=== PATIENT | female | born 1975 | race Caucasian/White ===

== ENCOUNTER 2019-05-23 12:41 | Emergency (ER) | payer OTHER, SELFPAY ==
[2019-05-23 12:45] VITALS: BP 132/91; PULSE 102; RESP 18; TEMP 37; O2SAT 96; BMI 36.0
--- NOTE | 2019-05-23 12:49 | ED_ITS ---
Entered by Bj Galvez, acting as scribe for Damián Mcdermott MD May 23, 2019 12:41 HPI - Neuro Symptoms/Deficit General: Chief Complaint: General Medical Stated Complaint: facial numbness Time Seen by Provider: 05/23/19 12:45 History of Present Illness: HPI Narrative: 43 yo female presents with facial numbness. pt states that she has had some slurred speech. Pt states that her head hurts and she is nauseated. Pt states that she had slurred speech off and on for the past 2 days. Pt states that her headache is getting better. Pt states that her headache is getting better. Onset (ago): day(s) (2) Location: speech and left face History of same: No Severity: moderate Quality: numb Relieving factors: time Exacerbating factors: none Context: gradual onset Associated symptoms: Reports headache(s), nausea, tingling and weakness; Deny chest pain Review of Systems Const: Denies: fever, chills, body aches or change in appetite Eyes: Denies: blurry vision or eye discomfort ENMT: Denies: throat pain or dental pain Card: Denies: chest pain Resp: Denies: shortness of breath GI: Reports: nausea : Denies: painful urination Musc: Denies: neck pain or back pain Skin/Breast: Denies: rash Neuro: Reports: headache Psych: Denies: depression Meir/Lymph: Denies: easy bruising All/Imm: Denies: hives PFSH ED PFSH: Social History Smoking and tobacco status: never smoked Physical Exam Const: COMMON NORMALS: no apparent distress, oriented x3 and healthy appearing HENMT: COMMON NORMALS: normocephalic and head/scalp atraumatic HEAD & SCALP: normocephalic and atraumatic Eye: COMMON NORMALS: PERRL and EOMs intact bilaterally PUPIL: Yes PERRL Neck/C-Spine: COMMON NORMALS: full ROM and supple Chest: COMMONS NORMALS: inspection of chest normal and palpation of chest normal Resp: COMMON NORMALS: normal respiratory effort, no retractions, no use of accessory muscles and clear to auscultation bilaterally AUSCULTATION: clear to auscultation bilaterally Cardio: COMMON NORMALS: regular rate, regular rhythm and no murmurs RATE: regular rate RHYTHM: regular rhythm GI: COMMON NORMALS: normal to inspection, nondistended, normoactive bowel sounds, soft to palpation, non-tender and no masses PALPATION: Yes soft Extremity: COMMON NORMALS: normal to inspection and full ROM Neuro: COMMON NORMALS: oriented x3, moves all extremities and no focal motor deficits Psych: COMMON NORMALS: mental status grossly normal, thought process normal and cooperative THOUGHT PROCESS: normal thought process Skin: COMMON NORMALS: no rashes or lesions noted and no wounds GENERAL SKIN EXAM: no rashes or lesions noted Course Vital Signs: Vital signs: Vital Signs Temperature 98.6 F 05/23/19 12:45 Pulse Rate 102 H 05/23/19 12:45 Respiratory Rate 18 05/23/19 12:45 Blood Pressure 132/91 05/23/19 12:45 Pulse Oximetry 96 05/23/19 12:45 MDM - Neuro Symptoms/Deficit MDM Narrative: Medical decision making narrative: Patient presents here with headaches along with paresthesias with her headaches. Patient is likely having migraines with aura. Paresthesias are bilateral has no signs of a stroke. Patient's lab work and CT here are normal. Patient symptom-free here. She is stable for discharge and I will prescribe her Fioricet and she is to follow-up with her primary care doctor. Lab Data: Labs: Lab Results 05/23/19 05/23/19 05/23/19 Range/Units 13:03 13:03 13:03 WBC 5.8 (4.0-10.0) 10^3/ uL RBC 4.07 L (4.1-5.3) 10^6/u L Hgb 11.8 (11.5-15.3) g/dL Hct 35.6 L (37.0-47.0) % MCV 87.5 (81-99) fL MCH 29.0 (28.0-34.0) pg MCHC 33.1 (30.0-36.0) g/dL RDW 11.6 L (12.1-15.1) % Plt Count 307 (130-400) 10^3/c mm MPV 9.9 (7.4-10.4) fL Neut % (Auto) 63.0 % Lymph % (Auto) 26.3 % Valley % (Auto) 7.0 % Eos % (Auto) 3.1 % Baso % (Auto) 0.3 % Neut # (Auto) 3.7 (1.8-7.7) 10^3/u L Lymph # (Auto) 1.5 (0.8-4.8) 10^3/u L Valley # (Auto) 0.4 (0.2-0.9) 10^3/u L Eos # (Auto) 0.2 (0.0-0.8) 10^3/u L Baso # (Auto) 0.0 (0.0-0.1) 10^3/u L Nucleated RBC % (a uto) 0 % Nucleated RBCs # 0.0 /100WBC Sodium 135 L (136-145) mmol/L Potassium 3.2 L (3.5-5.1) mmol/L Chloride 94 L (98-107) mmol/L Carbon Dioxide 28 (22-29) mmol/L Anion Gap 16.2 (5-19) BUN 22 H (6-20) mg/dL Creatinine 0.9 (0.5-0.9) mg/dL GFR Calculation 68.0 L (90-130) mL/min Glucose 119 H (65-115) mg/dL Calcium 10.0 (8.5-10.5) mg/dL Total Bilirubin 0.2 (0.15-1.2) mg/dL AST 12 (0-32) U/L ALT 14 (0-33) U/L Alkaline Phosphata se 131 H (35-105) IU/L Total Protein 7.4 (6.6-8.7) g/dL Albumin 4.3 (3.5-5.2) g/dL Globulin 3.1 (1.3-4.6) g/dL TSH 0.51 (0.27-4.20) uIU/ mL Imaging Data^: CT Head: My impression: Ordering Provider/Ordering MD: Damián Mcdermott MD Date of Service: 05/23/19 Procedure(s): CT head wo con* [id number] Accession Number(s): [id number] Report Number: [id number] PROCEDURE INFORMATION: Exam: CT Head Without Contrast Exam date and time: 05/23/2019 12:54 PM Age: 43 years old Clinical indication: Numbness / parasthesia; Bilateral; Patient HX: C/O intermittent facial numbness/tingling x 1 week; Additional info: Paresthesia TECHNIQUE: Imaging protocol: Computed tomography of the head without contrast. Total DLP: 777.42 mGy-cm Radiation optimization: All CT scans at this facility use at least one of these dose optimization techniques: automated exposure control; mA and/or kV adjustment per patient size (includes targeted exams where dose is matched to clinical indication); or iterative reconstruction. COMPARISON: No relevant prior studies available. FINDINGS: Brain: There is a left posterior fossa arachnoid cyst. Ventricles: Normal. No ventriculomegaly. Bones/joints: Unremarkable. No acute fracture. Sinuses: There are bilateral maxillary sinus air-fluid levels. Mastoid air cells: Visualized mastoid air cells are well aerated. Soft tissues: Unremarkable. CT/CT head wo con* [id number] IMPRESSION: 1. No acute intracranial findings identified. Please refer to incidental findings in body of report. 2. There are bilateral maxillary sinus air-fluid levels. 3. There is a left posterior fossa arachnoid cyst. EKG Data^: EKG 1: Attestation: I personally reviewed and interpreted this EKG as follows: EKG interpretation date: 05/23/19 EKG interpretation time: 13:17 Interpretation: nsr hr [address] or t wave abnormalities qrs 94 qtc 414 Discharge Plan Discharge Patient Disposition: Home, Self-Care Clinical Impression: Paresthesia Headache Qualifiers: Headache type: unspecified Headache chronicity pattern: episodic headache Intractability: not intractable Qualified Code(s): R51 - Headache Condition: Stable Prescriptions: New Fioricet 50-300-40 mg capsule 1 cap PO Q8H PRN (Reason: pain) Qty: 60 RF: 0 No Action cyclobenzaprine 10 mg tablet 10 mg PO QID PRN (Reason: Muscle Spasm) RF: 0 doxycycline hyclate 100 mg capsule 100 mg PO BID RF: 0 pantoprazole 20 mg tablet,delayed release (DR/EC) 20 mg PO DAILY RF: 0 alprazolam 0.5 mg tablet 0.5 mg PO BID PRN (Reason: Anxiety) RF: 0 hydrocodone-acetaminophen 7.5-325 mg tablet 1 tab PO Q6H PRN (Reason: Pain) RF: 0 levothyroxine 175 mcg Tablet 175 mcg PO DAILY RF: 0 gabapentin 600 mg Tablet 600 mg PO BID RF: 0 meloxicam 15 mg Tablet 15 mg PO DAILY RF: 0 potassium chloride 10 mEq Tablet Extended Release 10 meq PO DAILY RF: 0 methocarbamol 750 mg Tablet 750 mg PO TID RF: 0 fluoxetine 10 mg Capsule 10 mg PO DAILY RF: 0 lisinopril-hydrochlorothiazide 20-25 mg Tablet 1 tab PO DAILY RF: 0 Discharge Orders: Discharge Order (Routine); Ordered 05/23/19 Ordered By: Damián Mcdermott Discharge Diet: Advance as tolerated Discharge Activity: Resume usual activity Patient Instructions: Acute Headache (ED), Paresthesia (ED) Discharge Date/Time: 05/23/19 14:33 Coding Level of Care Code ED [employer] Attendant for Chg Fwd Exam Comprehensive The documentation recorded by the Lenny antunez Kialy, accurately reflects the service I personally performed and the decisions made by Baldemar parish Korby, MD May 23, 2019 12:41
--- NOTE | 2019-05-23 12:52 | CTR_ITS ---
PROCEDURE INFORMATION: Exam: CT Head Without Contrast Exam date and time: 05/23/2019 12:54 PM Age: 43 years old Clinical indication: Numbness / parasthesia; Bilateral; Patient HX: C/O intermittent facial numbness/tingling x 1 week; Additional info: Paresthesia TECHNIQUE: Imaging protocol: Computed tomography of the head without contrast. Total DLP: 777.42 mGy-cm Radiation optimization: All CT scans at this facility use at least one of these dose optimization techniques: automated exposure control; mA and/or kV adjustment per patient size (includes targeted exams where dose is matched to clinical indication); or iterative reconstruction. COMPARISON: No relevant prior studies available. FINDINGS: Brain: There is a left posterior fossa arachnoid cyst. Ventricles: Normal. No ventriculomegaly. Bones/joints: Unremarkable. No acute fracture. Sinuses: There are bilateral maxillary sinus air-fluid levels. Mastoid air cells: Visualized mastoid air cells are well aerated. Soft tissues: Unremarkable. CT/CT head wo con* [id number] IMPRESSION: 1. No acute intracranial findings identified. Please refer to incidental findings in body of report. 2. There are bilateral maxillary sinus air-fluid levels. 3. There is a left posterior fossa arachnoid cyst. Radiation Dose CTDIVOL = (mGy): DLP = 777.42 (mGy-cm)
--- NOTE | 2019-05-23 12:53 | ECG_ITS ---
Measurements Intervals [place] Rate: 86 P: 22 CA: 157 QRS: 31 QRSD: 94 T: 57 QT: 370 QTc: 445 SINUS RHYTHM No previous ECG available for comparison Electronically Signed On 05-23-2019 20:01:17 DREDGE LEVER OPERATOR by Carmen Cao M.D. [email or web address]
[2019-05-23 13:09] LABS: Basophils % 0.3 %; Eosinophils # 0.2 10^3/uL (0.0-0.8); Eosinophils % 3.1 %; Hematocrit 35.6 % (37.0-47.0); Hemoglobin 11.8 g/dL (11.5-15.3); Lymphocytes # 1.5 10^3/uL (0.8-4.8); Lymphocytes % 26.3 %; Mean Corpuscular HGB Conc 33.1 g/dL (30.0-36.0); Mean Corpuscular Volume 87.5 fL (81-99); Mean Platelet Volume 9.9 fL (7.4-10.4); Monocytes # 0.4 10^3/uL (0.2-0.9); Neutrophils # 3.7 10^3/uL (1.8-7.7); Nucleated Red Blood Cells % 0 %; Platelet Count 307 10^3/cmm (130-400); Red Blood Count 4.07 10^6/uL (4.1-5.3); Red Cell Distribution Width 11.6 % (12.1-15.1); White Blood Count 5.8 10^3/uL (4.0-10.0)
[2019-05-23 13:23] LABS: Alanine Aminotransferase 14 U/L (0-33); Albumin Level 4.3 g/dL (3.5-5.2); Alkaline Phosphatase 131 IU/L (35-105); Anion Gap 16.2 (5-19); Aspartate Amino Transferase 12 U/L (0-32); Blood Urea Nitrogen 22 mg/dL (6-20); Carbon Dioxide 28 mmol/L (22-29); Chloride 94 mmol/L (98-107); Globulin 3.1 g/dL (1.3-4.6); Glucose 119 mg/dL (65-115); Potassium 3.2 mmol/L (3.5-5.1); Sodium 135 mmol/L (136-145); Total Bilirubin 0.2 mg/dL (0.15-1.2); Total Protein 7.4 g/dL (6.6-8.7)
[2019-05-23 14:03] LABS: Thyroid Stimulating Hormone 0.51 uIU/mL (0.27-4.20)
--- NOTE | 2019-05-23 14:33 | PC.NURSE ---
PHYSICAL ASSESSMENT Chief Complaint: Facial numbness GENERAL / NEURO / PSYCH: Alert. Oriented X 4. DANIELLE COMA SCORE: 15- eyes open spontaneously (4); best verbal response- oriented x 4 (5); best motor response- obeys commands (6). HEENT: No facial asymmetry noted. Mucous membranes are pink. RESPIRATORY Chest nontender. Breath sounds within normal limits. CVS: Capillary refill less than 2 seconds. Pulses within normal limits. GI / : Abdomen soft and nontender and normal bowel sounds. SKIN: Skin intact. Skin is warm and dry. Normal skin turgor.
== END 2019-05-23 14:33 | disposition home or self-care (01) ==
PROVIDERS: Emergency Provider Emergency Medicine
DX: R51 Headache (principal); R20.2 Paresthesia of skin
CPT/HCPCS: 36415; 70450; 80053; 84443; 85025; 93005; 99281; 99283

== ENCOUNTER 2019-06-03 06:53 | Outpatient (CLI) | payer OTHER, SELFPAY ==
--- NOTE | 2019-06-03 07:09 | MR_ITS ---
WS: [id number] MRI HEAD WITHOUT CONTRAST TECHNIQUE: Sagittal T1, T2 axial, T2 axial FLAIR, axial and coronal T1 images, axial susceptibility w eighted imaging, axial diffusion weighted images, and coronal T2 images were obtained. CLINICAL INFORMATION: MIGRAINES;SPEECH DISTURBANCES COMPARISON: CT May 23, 2019 FINDINGS: No evidence of restricted diffusion to suggest acute ischemia. Ventricular system and basal cisterns are patent. No suspicious intracranial signal abnormalities. Normal browne-white differentiation. Retrocerebellar arachnoid cyst measuring 2.9 x 7.6 x 5.3 cm AP by transverse by craniocaudal. This is likely incidental. Normal fourth ventricle. Normal vascular flow voids at the skull base. Additional tiny incidental arachnoid cyst along the left anterior temporal lobe measuring 1.8 x 0.9 cm. Mild mucosal thickening mastoid air cells. Mild mucosal thickening in the paranasal sinuses. No hemos iderin on susceptibly weighted images. Temporal lobes and hippocampal formations are normal in appear ance. Normal optic chiasm and pituitary infundibulum. MR/MR head wo con* [id number] IMPRESSION: 1. No evidence of restricted diffusion to suggest acute ischemia. 2. Retrocerebellar arachnoid cyst typically incidental. Normal fourth ventricl e. 3. No suspicious intracranial signal abnormalities. 4. No hemosiderin on susceptibly weighted images. 5. Mild mucosal thickening mastoid air cells. 6. Additional tiny incidental arachnoid cyst overlying the left anterior tempo ral lobe measuring 1.8 x 0.9 cm
== END 2019-06-03 06:54 | disposition home or self-care (01) ==
LOC: RADSHAW 06:57
PROVIDERS: PCP Nurse Practitioner Family; Visit Provider Nurse Practitioner Family
DX: G43.909 Migraine, unspecified, not intractable, without status migrainosus (principal)
CPT/HCPCS: 70551

== ENCOUNTER → 2019-06-14 13:39 | Outpatient (BNVA) | payer OTHER, SELFPAY | PROVIDERS: PCP Nurse Practitioner Family; Referring Provider Nurse Practitioner Family; Visit Provider Specialist | DX: G50.8 Other disorders of trigeminal nerve (principal); M54.5 Low back pain; G93.0 Cerebral cysts; F17.210 Nicotine dependence, cigarettes, uncomplicated | CPT/HCPCS: 99204 ==

== ENCOUNTER 2019-07-13 08:24 | Outpatient (CLI) | payer OTHER, SELFPAY ==
--- NOTE | 2019-07-13 08:45 | MR_ITS ---
WS: [id number] MRA CAROTID WITHOUT AND WITH GADOLINIUM ENHANCEMENT TECHNIQUE: Axial 2-D TOF and gadolinium bolus images obtained with axial images and axial, sagittal, and coronal 2-D reformatted images. CLINICAL INFORMATION: vertigo COMPARISON: None. FINDINGS: RIGHT: Right common carotid artery is patent. No significant right ICA stenosis. ICA is patent to the skull base. LEFT: Left common carotid artery is patent. No significant left ICA stenosis. Left ICA is patent to t he skull base. Codominant and patent vertebral arteries bilaterally. Proximal subclavian arteries are patent. Thorac ic aorta and aortic arch appear normal. MR/MR angio neck w con* [id number] IMPRESSION: 1. No significant ICA stenosis bilaterally. 2. Both ICAs are patent to the skull base. 3. Codominant and patent vertebral arteries bilaterally. 4. Normal visualized aortic arch.
--- NOTE | 2019-07-13 08:45 | MR_ITS ---
WS: [id number] MRA HEAD TECHNIQUE: Axial 3-D TOF images obtained with axial images and axial, sagittal, and coronal 2-D refor matted images. CLINICAL INFORMATION: vertigo COMPARISON: None. FINDINGS: Distal vertebral arteries are patent. Basilar artery is patent. Normal vascularity to the WET PROCESS OPERATOR territo merry bilaterally. Both ICAs are patent at the skull base. Patent anterior communicating artery. Normal vascularity to t he AMY and MCA territories bilaterally. No evidence of high-grade proximal stenosis or aneurysm. MR/MR angio head wo con [id number] IMPRESSION: Normal intracranial MRA.
--- NOTE | 2019-07-13 08:45 | MR_ITS ---
WS: [id number] MRI CERVICAL SPINE NONCONTRAST TECHNIQUE: Sagittal T1, T2 and STIR imaging. Axial T2, gradient, and fiesta imaging. CLINICAL INFORMATION: numbness and tingling COMPARISON: None. FINDINGS: Straightening of the normal cervical lordosis. Mild disc osteophyte complexes more prominent at C3-C4 , C5-C6 and C6-C7. Cord signal is normal. C2-C3: Normal. C3-C4: Mild disc osteophyte ridging. Mild facet arthropathy. Mild right and no significant left ronaldo inal narrowing. Spinal canal is patent. C4-C5: Mild disc osteophyte ridging. Mild right and no significant left foraminal narrowing. Mild fac et arthropathy. Spinal canal is patent. C5-C6: Mild disc osteophyte ridging. Mild bilateral bony foraminal narrowing. Mild facet arthropathy. C6-C7: Disc osteophyte complex with a tiny central protrusion. Spinal canal is patent. Foramen are pa tent. C7-T1: No significant disc bulging. Spinal canal and foramen are patent Posterior fossa arachnoid cyst partially visualized unchanged since the MRI June 03, 2019 MR/MR cervical spin wo con* [id number] IMPRESSION: 1. Straightening of the normal cervical lordosis. 2. Mild disc osteophyte complexes more prominent at C3-C4, C5-C6 and C6-C7 wit h no significant central canal stenosis. 3. Mild bony foraminal narrowing more prominent at right C3-C4, right C4-5, an d left C5-C6. 4. Mild facet arthropathy in the mid cervical spine worse at C4-5. 5. Retrocerebellar arachnoid cyst
== END 2019-07-13 08:25 | disposition home or self-care (01) ==
LOC: RADSHAW 08:26
PROVIDERS: PCP Nurse Practitioner Family; Visit Provider Specialist
DX: R20.2 Paresthesia of skin (principal); R42 Dizziness and giddiness; M25.78 Osteophyte, vertebrae; M48.02 Spinal stenosis, cervical region; M47.812 Spondylosis without myelopathy or radiculopathy, cervical region; G93.0 Cerebral cysts
CPT/HCPCS: 70544; 70548; 72141

== ENCOUNTER 2019-09-06 09:09 | Outpatient (CLI) | payer OTHER, SELFPAY ==
--- NOTE | 2019-09-06 09:12 | XR_ITS ---
WS: [id number] CERVICAL SPINE FLEXION EXTENSION TECHNIQUE: 3 views of the cervical spine: lateral neutral, flexion and extension views. CLINICAL INFORMATION: Neck pain COMPARISON: None. FINDINGS: Normal alignment on the neutral view. Normal alignment on the flexion views. Normal alignment in extension. Posterior elements are normal. No other significant findings. XR/XR cervical spine fl/ex [id number] IMPRESSION: No instability on flexion-extension
--- NOTE | 2019-09-06 09:12 | XR_ITS ---
WS: [id number] LUMBAR SPINE FLEXION AND EXTENSION TECHNIQUE: 3 views of the lumbar spine: Lateral neutral, flexion, and extension views. CLINICAL INFORMATION: Low back pain COMPARISON: None. FINDINGS: 3.8 mm anterolisthesis L4 on L5. This increases on flexion to 5.4 mm and decreases on extension to 2. 6 mm. XR/XR lumbar spine f/e only [id number] IMPRESSION: Mild instability L4-5 described above.
== END 2019-09-06 09:10 | disposition home or self-care (01) ==
LOC: WPI 09:10
PROVIDERS: PCP Nurse Practitioner Family; Visit Provider Licensed Practical Nurse
DX: M54.5 Low back pain (principal); M54.2 Cervicalgia; M53.2X6 Spinal instabilities, lumbar region
CPT/HCPCS: 72040; 72120

== ENCOUNTER → 2019-10-27 09:14 | Outpatient (BNVA) | payer OTHER, SELFPAY | PROVIDERS: PCP Nurse Practitioner Family; Referring Provider Licensed Practical Nurse; Visit Provider Anesthesiology Pain Medicine | DX: M47.812 Spondylosis without myelopathy or radiculopathy, cervical region (principal); M48.02 Spinal stenosis, cervical region; M54.5 Low back pain; M54.9 Dorsalgia, unspecified; F17.220 Nicotine dependence, chewing tobacco, uncomplicated; Z79.891 Long term (current) use of opiate analgesic | CPT/HCPCS: 99205 ==

== ENCOUNTER → 2021-07-11 11:00 | Outpatient (BNVA) | payer OTHER, SELFPAY | PROVIDERS: PCP Nurse Practitioner Family; Visit Provider Internal Medicine | DX: R41.89 Other symptoms and signs involving cognitive functions and awareness (principal); M54.50 Low back pain, unspecified; R76.8 Other specified abnormal immunological findings in serum; M54.9 Dorsalgia, unspecified; M25.50 Pain in unspecified joint | CPT/HCPCS: 36415; 72100; 72202; 73120; 73620; 80053; 85025; 85651; 86140; 86160; 86162; 86200; 86235; 86255; 86376; 86480; 86704; 86803; 87340 ==

== ENCOUNTER 2022-01-02 08:50 | Outpatient (CLI) | payer OTHER, SELFPAY ==
[2022-01-02 09:52] LABS: Basophils % 0.3 %; Eosinophils # 0.1 10^3/uL (0.0-0.8); Eosinophils % 2.3 %; Hematocrit 36.4 % (37.0-47.0); Lymphocytes # 1.9 10^3/uL (0.8-4.8); Lymphocytes % 32.4 %; Mean Corpuscular Hemoglobin 29.1 pg (28.0-34.0); Mean Corpuscular Volume 88.3 fl (81-99); Mean Platelet Volume 10.3 fL (7.4-10.4); Monocytes # 0.5 10^3/uL (0.2-0.9); Monocytes % 8.4 %; Neutrophils # 3.23 10^3/uL (1.8-7.7); Neutrophils % 56.3 %; Nucleated Red Blood Cells % 0 %; Platelet Count 412 10^3/cmm (130-400); Red Blood Count 4.12 10^6/uL (4.1-5.3); White Blood Count 5.7 10^3/uL (4.0-10.0)
[2022-01-02 10:02] LABS: Erythrocyte Sedimentation Rate 6 mm/hr (0-15)
[2022-01-02 10:15] LABS: Alanine Aminotransferase 11 U/L (0-33); Albumin Level 4.4 g/dL (3.5-5.2); Alkaline Phosphatase 100 U/L (35-105); Anion Gap 17.4 (5-19); Aspartate Amino Transferase 13 U/L (0-32); Blood Urea Nitrogen 17 mg/dL (6-20); C Reactive Protein 3.3 mg/L (0.0-4.9); Carbon Dioxide 28 mmol/L (22-29); Chloride 97 mmol/L (98-107); Globulin 3.6 g/dL (1.3-4.6); Glomerular Filtration Rate 67.1 mL/min (90-130); Glucose 102 mg/dL (65-115); Osmolality Calculated 288 mOsm/kg (285-295); Potassium 4.4 mmol/L (3.5-5.1); Sodium 138 mmol/L (136-145); Total Bilirubin 0.2 mg/dL (0.15-1.2)
== END 2022-01-02 08:51 | disposition home or self-care (01) ==
PROVIDERS: Visit Provider Internal Medicine
DX: M54.50 Low back pain, unspecified (principal); R76.8 Other specified abnormal immunological findings in serum
CPT/HCPCS: 36415; 80053; 85025; 85651; 86140

== ENCOUNTER 2022-08-26 10:11 | Emergency (ER) | payer OTHER, SELFPAY ==
[2022-08-26 10:40] VITALS: BP 133/93; PULSE 98; RESP 19; TEMP 36.8; O2SAT 97
--- NOTE | 2022-08-26 11:05 | ED_ITS ---
HPI - Back Pain/Injury General: Chief Complaint: Back Pain/Injury Stated Complaint: low back pain Time Seen by Provider: 08/26/22 11:01 Source: patient Mode of arrival: ambulatory Limitations: no limitations History of Present Illness: Patient is a 46-year-old female who presents to the ED today with a complaint of lower back pain. Patient states she has a history of osteoarthritis, rheumatoid arthritis, fibromyalgia, sciatica, and bulging lumbar discs. She states pain has been present over the past 2 days or so. She states pain is radiating down into both bilateral lower extremities. She feels like something is stuck near her lumbar/sacral area. She feels like she is only able to shuffle her feet secondary to pain. MD elicited complaint: back pain Pertinent past history: prior back pain Onset (ago): day(s) Timing: constant Severity: severe Pain scale (0-10): 9 Similar Symptoms Previously: Yes Location: lumbar spine Radiation: left leg below the knee and right leg below the knee Exacerbating factors: walking and lifting Relieving factors: none Associated symptoms: Reports no associated symptoms and difficulty walking (secondary to back pain); Deny abdominal pain, chills, dysuria, fever(s) or hematuria Work related injury: No Review of Systems Const: Denies: fever(s), chills or body aches Card: Denies: chest pain Resp: Denies: dyspnea GI: Denies: abdominal pain : Denies: flank pain, dysuria or hematuria Musc: Reports: back pain Neuro: Reports: difficulty walking (secondary to back pain); Denies: headache(s), numbness in extremities, weakness in extremities, sensory changes or lack of coordination [facility] ED PFSH: Medical History Cervical disc disease Low back pain Low back pain of over 3 months duration Spondylolisthesis of lumbar region Surgical History History of delivery History of cholecystectomy History of tubal ligation Family History Grandmother Cancer Grandmother Diabetes Family/Other Hypertension Thyroid disease Grandmother Thyroid disease Social History Smoking and tobacco status: never smoked Alcohol intake: current Alcohol intake frequency: few times a month Substance/Drug Use: never Household members: none Marital status: Current occupation: [employer] in [place] Physical Exam Const: COMMON NORMALS: no acute distress, patient oriented x3, no limitations, alert and well nourished GENERAL APPEARANCE: cooperative NUTRITIONAL APPEARANCE: obese morbidly obese ORIENTATION/CONSCIOUSNESS: Yes awake, Yes oriented to person, Yes oriented to place and Yes oriented to time Resp: COMMON NORMALS: normal respiratory effort and clear to auscultation bilaterally AUSCULTATION: clear to auscultation bilaterally Cardio: COMMON NORMALS: regular rate and regular rhythm RATE: regular rate RHYTHM: regular rhythm : COMMON NORMALS: Yes no CVA tenderness BLADDER/KIDNEY EXAM: Yes no CVA tenderness Back/Pelvis: COMMON NORMALS: no CVA tenderness THORACIC SPINE/UPPER BACK: Yes normal to inspection, No thoracic spinal tenderness, No paraspinal muscle tenderness and No paraspinal muscle spasm LUMBAR SPINE/LOWER BACK: Yes normal to inspection, Yes lumbar spinal tenderness, Yes paraspinal muscle tenderness and No paraspinal muscle spasm PELVIS: Yes buttocks normal and Yes sciatic notch tenderness bilateral SACROILIAC JOINTS: Yes SI joint(s) abnormal SI joint details: tender to palpation SACRUM: no tenderness COCCYX: no tenderness Extremity: COMMON NORMALS: normal to inspection GENERAL: Yes normal exam except as noted Neuro: CHASE COMA SCALE: document [facility] findings [place] coma scale eye opening: Spontaneous [place] coma scale verbal response: Orientated [place] coma scale motor response: Obey commands [place] coma scale total score: 15 COMMON NORMALS: patient oriented x3, moves all extremities, no focal motor deficits and no sensory deficits noted SENSORIUM/ORIENTATION: Yes alert, Yes oriented to person, Yes oriented to place and Yes oriented to time GAIT: Yes Normal gait present (after meds patient was ambulated and did well ) MOTOR EXAM: 5/5 motor strength present throughout Skin: COMMON NORMALS: no rashes or lesions noted GENERAL SKIN EXAM: no rashes or lesions noted Course Vital Signs: Vital signs: Vital Signs Temperature 98.2 F 08/26/22 10:40 Pulse Rate 98 08/26/22 10:40 Respiratory Rate 19 H 08/26/22 10:40 Blood Pressure 133/93 08/26/22 10:40 Pulse Oximetry 97 08/26/22 10:40 Oxygen Delivery Me thod Room Air 08/26/22 10:40 MDM - Back Pain/Injury Medical Decision Making Patient feels better after IM medications here. She ambulated well without assistance or difficulty. Patient feels comfortable going home. She takes Mobic and Robaxin daily so we will add something additional for pain and place her on steroids. Recommend she follow-up with her primary care provider. Return ED precautions given. Labs Radiology Impressions Lumbar Spine X-Ray 08/26/22 11:19 IMPRESSION: No acute findings. Discharge Plan Discharge Patient Disposition: Home Clinical Impression: Acute exacerbation of chronic low back pain Condition: Stable Prescriptions: New hydrocodone-acetaminophen 5-325 mg tablet 1 tab PO Q6H PRN (Reason: pain) Qty: 14 0RF Medrol (Apolinar) 4 mg tablets,dose pack See Rx Instructions .ROUTE .COMPLEX Qty: 21 0RF Rx Instructions: orally per package directions Continued meloxicam 15 mg tablet 15 mg PO DAILY Qty: 30 0RF methocarbamol 750 mg tablet 750 mg PO TID PRN Discontinued tramadol 50 mg tablet 100 mg PO BID PRN prednisone 5 mg tablet See Rx Instructions PO DAILY Qty: 60 0RF Rx Instructions: 20mg po qday x 5 days, then 15mg po qday x 5 days, 10mg po qday x 5days, 5mg po qday PO daily; prednisone 5 mg tablet See Rx Instructions PO DAILY Qty: 60 0RF Rx Instructions: 1-2 tablets daily PO daily; No Action levothyroxine 150 mcg capsule 150 mcg PO DAILY venlafaxine [Effexor XR] 150 mg capsule,extended release 24hr 150 mg PO BID alprazolam 1 mg tablet 1 mg PO BID garlic PO turmeric PO levocetirizine [Xyzal] 5 mg tablet 5 mg PO DAILY diclofenac sodium [Voltaren Arthritis Pain] 1 % gel 4 g topical QID Qty: 100 0RF Rx Instructions: apply to single knee, ankle, foot; for foot includes sole/toes/top of foot hydroxychloroquine 200 mg tablet 200 mg PO BID Qty: 60 0RF pantoprazole 20 mg tablet,delayed release (DR/EC) 20 mg PO DAILY gabapentin 600 mg Tablet 600 mg PO BID potassium chloride 10 mEq Tablet Extended Release 10 meq PO DAILY lisinopril-hydrochlorothiazide 20-25 mg Tablet 1 tab PO DAILY Discharge Orders: Discharge ED (Routine); Ordered 08/26/22 Ordered By: Hillary Maldonado Referrals: Caio Melgar [Primary Care Provider] - Patient Instructions: Opioid Safety, Pain Management Coding Level of Care Code ED Carpenter Labor Supervisor for Geraldo Lane
--- NOTE | 2022-08-26 11:19 | XRR_ITS ---
PROCEDURE INFORMATION: Exam: XR Lumbosacral Spine Exam date and time: 08/26/2022 11:43 AM Age: 46 years old Clinical indication: Low back pain TECHNIQUE: Imaging protocol: Radiologic exam of the lumbosacral spine. Views: 2 or 3 views. COMPARISON: CR XR lumbar spine 2-3V* [id number] 07/11/2021 11:23 AM FINDINGS: Bones/joints: Normal. No acute fracture. Normal alignment. Soft tissues: Unremarkable. There has been no interval change comparing to prior examination XR/XR lumbar spine 2-3V* [id number] IMPRESSION: No acute findings.
[2022-08-26] MEDS: ketorolac 60 mg/2 mL INJ 30 MG IM (11:34)
[2022-08-26] MEDS: dexamethasone 10 mg/mL INJ 8 MG IM (11:34)
[2022-08-26] MEDS: orphenadrine 30 mg/mL Inj 2 mL 60 MG IM (11:35)
[2022-08-26] MEDS: morphine 4 mg/mL SDV 1 mL IM (11:35)
== END 2022-08-26 12:40 | disposition home or self-care (01) ==
PROVIDERS: Emergency Provider Physician Assistant; PCP Family Medicine
DX: M54.50 Low back pain, unspecified (principal); G89.29 Other chronic pain
CPT/HCPCS: 72100; 96372; 99284; J1100; J1885; J2270; J2360

== ENCOUNTER → 2022-11-19 16:00 | Outpatient (BNVA) | payer OTHER, SELFPAY | PROVIDERS: PCP Family Medicine; Visit Provider Obstetrics & Gynecology | DX: Z12.4 Encounter for screening for malignant neoplasm of cervix (principal) | CPT/HCPCS: 87624 ==

== ENCOUNTER → 2022-12-11 15:36 | Outpatient (BNVA) | payer OTHER, SELFPAY | PROVIDERS: PCP Family Medicine; Visit Provider Obstetrics & Gynecology | DX: D25.9 Leiomyoma of uterus, unspecified (principal); N83.201 Unspecified ovarian cyst, right side | CPT/HCPCS: 76830 ==

== ENCOUNTER 2022-12-26 05:46 | Day surgery (SDC) | payer OTHER, SELFPAY ==
[2022-12-25 10:18] VITALS: BMI 41.4
--- NOTE | 2022-12-25 23:13 | W.PM.OPSFHP ---
Same Day Surgery H&P Indication for Procedure/HPI DATE OF PROCEDURE: December 26, 2022 CHIEF COMPLAINT/INDICATIONFOR SURGICAL PROCEDURE: history of endometrial ablation abnormal uterine bleeding PREOP DIAGNOSIS: h/o endometrial ablation; abnormal uterine bleeding PLANNED PROCEDURE: Operation Date: 12/26/22 07:00 Proposed Procedures p Hysteroscopy, endometrial sampling, possible endometrial polypectomy with Myosure 98050,N93.9(Not Applicable) - Nehemias Mack MD 47 y.o. h/o BTL h/o endometrial ablation in 2014 began to have daily spotting x 8 months now scheduled for hysteroscopy, endometrial sampling, possible endometrial polypectomy Medications/Allergies* Home Medications Medication Instructions Recorded Confirmed Type gabapentin 600 mg tablet 600 mg PO BID 05/23/19 12/25/22 History lisinopril 20 1 tab PO DAILY 05/23/19 12/25/22 History mg-hydrochlorothiazide 25 mg tablet pantoprazole 20 mg tablet,delayed 20 mg PO DAILY 05/23/19 12/25/22 History release potassium chloride 10 mEq 10 meq PO DAILY 05/23/19 12/25/22 History tablet,extended release alprazolam 1 mg tablet 1 mg PO BID 07/11/21 12/25/22 History garlic 2 cap PO DAILY 07/11/21 12/25/22 History levocetirizine 5 mg tablet (Xyzal) 5 mg PO DAILY 07/11/21 12/25/22 History levothyroxine 150 mcg capsule 150 mcg PO DAILY 07/11/21 12/25/22 History prednisone 5 mg tablet 5 mg PO PRN RA 12/25/22 12/25/22 History Allergies/Adverse Reactions Allergy/AdvReac Type Severity Reaction Status Date / Time Penicillins Allergy childhood Verified 11/19/22 15:18 allergy Pertinent History/Comorbid Conditions* Medical History (Updated 11/24/22 @ 23:46 by Nehemias Mack MD) Cervical disc disease Low back pain Low back pain of over 3 months duration Spondylolisthesis of lumbar region Surgical History (Updated 11/24/22 @ 23:44 by Nehemias Mack MD) History of delivery History of cholecystectomy History of endometrial ablation 2014 History of tubal ligation Family History (Updated 11/19/22 @ 11:49 by Jacky Barrientos) Diabetes Grandmother Cancer Grandmother Hypertension Family/Other Thyroid disease Family/Other Grandmother Denies family history of Colon cancer Ovarian cancer Heart disease Hyperlipidemia Breast cancer Uterine cancer Stroke Social History Smoking and tobacco status: never smoked Alcohol intake: current Alcohol intake frequency: few times a month Substance/Drug Use: never Household members: none Marital status: Current occupation: [employer] in [place] Pertinent Exam Findings alert, oriented x 3, clear to auscultation bilaterally and regular rate & rhythm Recommendations Surgery/Procedure today Other Plans: surgery / procedure December 26, 2022 Coding Level of Care Code Acute Code for Chg Fwd Diagnoses Time Spent (min) 20
[2022-12-26] VITALS (11 sets, daily range): BP systolic 80–137; BP diastolic 53–77; PULSE 71–86; RESP 12–22; TEMP 36.8–37; O2SAT 96–100
--- NOTE | 2022-12-26 06:36 | P.ANESASSM_ITS ---
Pre-Anesthetic Assessment Height/Weight: Height 1.6 m Weight 106.141 kg Temp Pulse Resp BP Pulse Ox O2 Del Method 98.4 F 77 16 137/76 96 Room Air 12/26/22 05:56 12/26/22 05:56 12/26/22 05:56 12/26/22 05:56 12/26/22 05:56 12/26/22 06:17 Preop Diagnosis: abnormal uterine bleeding Operation Date: 12/26/22 07:00 Proposed Procedures p Hysteroscopy, endometrial sampling, possible endometrial polypectomy with Myosure 60108,N93.9(Not Applicable) - Nehemias Mack MD Familial anesthetic complications: None Was Beta Pinky taken within 24 hours: N/A Was Clonidine taken within 24 hours: N/A Last intake: Intake Last Liquid Date 12/25/22 Last Liquid Time 20:00 Last Solid Date 12/25/22 Last Solid Time 16:30 Social Tobacco (chews) and No alcohol Exam alert, oriented x 3, clear to auscultation bilaterally and regular rate & rhythm Airway Mallampati: Class III Dentition: full CV/HEM Hypertension Metabolic Morbid Obesity and Thyroid Disease Anesthetic Plan ASA status: 3 Anesthesia: General Risk of > 500 ml blood loss (7ml/kg in children): No Medications/Allergies Home Medications Medication Instructions Recorded Confirmed Last Taken Type gabapentin 600 mg tablet 600 mg PO BID 05/23/19 12/25/22 12/26/22 History lisinopril 20 1 tab PO DAILY 05/23/19 12/25/22 12/25/22 History mg-hydrochlorothiazide 25 mg tablet pantoprazole 20 mg tablet,delayed 20 mg PO DAILY 05/23/19 12/25/22 12/25/22 History release potassium chloride 10 mEq 10 meq PO DAILY 05/23/19 12/25/22 12/25/22 History tablet,extended release alprazolam 1 mg tablet 1 mg PO BID 07/11/21 12/25/22 12/26/22 History garlic 2 cap PO DAILY 07/11/21 12/25/22 12/24/22 History levocetirizine 5 mg tablet (Xyzal) 5 mg PO DAILY 07/11/21 12/25/22 12/25/22 History levothyroxine 150 mcg capsule 150 mcg PO DAILY 07/11/21 12/25/22 12/25/22 History diclofenac sodium 1 % topical gel 4 g topical QID #100 grams 10/03/21 12/25/22 12/20/22 Rx (Voltaren Arthritis Pain) hydrocodone 5 mg-acetaminophen 325 1 tab PO Q6H PRN pain #14 tabs 08/26/22 12/25/22 12/18/22 Rx mg tablet hydroxychloroquine 200 mg tablet 200 mg PO BID #60 tabs 11/06/22 12/25/22 12/26/22 Rx leflunomide 10 mg tablet 10 mg PO DAILY #30 tabs 11/06/22 12/25/22 12/26/22 Rx meloxicam 15 mg tablet 15 mg PO DAILY #30 tabs 11/06/22 12/25/22 12/22/22 Rx solifenacin 10 mg tablet (Vesicare) 10 mg PO DAILY #30 tabs 11/19/22 12/25/22 12/25/22 Rx prednisone 5 mg tablet 5 mg PO PRN RA 12/25/22 12/25/22 Unknown History cyclobenzaprine 5 mg tablet 5 mg PO BID PRN Spasms 12/26/22 12/26/22 12/25/22 History Allergies Allergy/AdvReac Type Severity Reaction Status Date / Time No Known Drug Allergies Allergy Unknown Verified 12/26/22 06:04 [facility] Anesthesia Medical History (Updated 11/24/22 @ 23:46 by Nehemias Mack MD) Cervical disc disease Low back pain Low back pain of over 3 months duration Spondylolisthesis of lumbar region Surgical History (Updated 11/24/22 @ 23:44 by Nehemias Mack MD) History of delivery History of cholecystectomy History of endometrial ablation 2015 History of tubal ligation Family History (Updated 11/19/22 @ 11:49 by Jacky Barrientos) Grandmother Cancer Grandmother Diabetes Family/Other Hypertension Thyroid disease Grandmother Thyroid disease Denies family history of Colon cancer Ovarian cancer Heart disease Hyperlipidemia Breast cancer Uterine cancer Stroke Social History Smoking and tobacco status: never smoked Alcohol intake: current Alcohol intake frequency: few times a month Substance/Drug Use: never Household members: none Marital status: Current occupation: [employer] History Date of last menstrual period: 03/24/15 Data Anesthesia Cardiac Studies: No Data to Display
[2022-12-26] MEDS: sodium chloride 0.9% 1,000 ML 30 ML IV (06:45)
--- NOTE | 2022-12-26 06:53 | W.PM.OPSUD ---
Surgery/Procedure H&P Update DATE OF PROCEDURE: December 26, 2022 DATE H&P PERFORMED: 12/25/22 H&P UPDATE INFORMATION: I have reviewed H&P completed within last 30 days, I have examined patient prior to procedure and No changes to prior documentation PREOP DIAGNOSIS: abnormal uterine bleeding PLANNED PROCEDURE: Operation Date: 12/26/22 07:00 Proposed Procedures p Hysteroscopy, endometrial sampling, possible endometrial polypectomy with Myosure 88489,N93.9(Not Applicable) - Nehemias Mack MD
[2022-12-26 07:10] LABS: Anion Gap 15.8 (5-19); Blood Urea Nitrogen 22 mg/dL (6-20); Calcium 9.7 mg/dL (8.5-10.5); Carbon Dioxide 29 mmol/L (22-29); Chloride 101 mmol/L (98-107); Glomerular Filtration Rate 59.2 mL/min (90-130); Glucose 115 mg/dL (65-115); Osmolality Calculated 296 mOsm/kg (285-295); Potassium 4.8 mmol/L (3.5-5.1); Sodium 141 mmol/L (136-145)
--- NOTE | 2022-12-26 07:50 | PM.OP ---
Operative Report Date of procedure: December 26, 2022 Pre-op diagnosis: history of endometrial ablation abnormal uterine bleeding Post-op diagnosis: same Post-op findings: constricted endometrial cavity c/w previous endometrial ablation No polyps / fibroids Moderate amount of endometrial tissue Procedure done: hysteroscopy Curettage of uterus Implants: none Specimens removed/disposition: endometrial curettings Surgeon: Nehemias Mack MD Anesthesia: MAC Estimated blood loss (mL): 0 Complications: none Condition: stable Disposition: PACU Brief History: 47 y.o. h/o BTL h/o endometrial ablation in 2014 began to have daily spotting x 8 months Procedure: Informed consent signed. Patient was taken to the operating room. Anesthesia was induced. Patient was placed in dorsolithotomy position, prepped and draped for hysteroscopy. A bivalve speculum was placed in the vagina. The anterior lip of the cervix was grasped with a sharp-toothed tenaculum. The cervix was serially dilated with Hegar dilators. . A hysteroscope was placed into the endometrial cavity. The endometrial cavity was seen to be narrow and constricted. There were no polyps or fibroids. There was a moderate amount of endometrial tissue. The hysteroscope was then removed. Endometrial curettage was done with a sharp curette. Endometrial tissue was sent to pathology. The sharp-toothed tenaculum was removed. There was no bleeding from the endometrial cavity or cervix. The patient was then placed supine and awakened and taken to the PACU. Postop condition: stable EBL: none Sponge and instruments counts were normal x 2 Complications: none
--- NOTE | 2022-12-26 09:00 | ANE.PACU2 ---
Inpatient post-anesthesia follow up: Airway intact: Yes Vital signs: Temperature 98.6 F Pulse Rate 73 Respiratory Rate 16 Blood Pressure 119/77 Pulse Oximetry 100 Oxygen Delivery Me thod Room Air Oxygen Flow Rate 6 Fraction of Inspir ed Oxygen Hydration adequate: Yes Nausea and vomiting: No Pain level: 1 Mental status: Baseline
== END 2022-12-26 09:09 | disposition home or self-care (01) ==
PROVIDERS: PCP Family Medicine; Visit Provider Obstetrics & Gynecology
PROC: 0UDB8ZZ Extraction of Endometrium, Via Natural or Artificial Opening Endoscopic (ICD-10-PCS; CPT 58558; principal; 2022-12-26 07:00)
DX: N87.0 Mild cervical dysplasia (principal); N93.9 Abnormal uterine and vaginal bleeding, unspecified; Z98.890 Other specified postprocedural states; I10 Essential (primary) hypertension; E66.01 Morbid (severe) obesity due to excess calories; Z68.41 Body mass index [BMI] 40.0-44.9, adult
CPT/HCPCS: 58558; 80048; 88305; 88342; J0131; J1100; J1885; J2250; J2371; J2405; J2704; J3010; J7030

== ENCOUNTER → 2023-01-01 13:43 | Outpatient (BNVA) | payer OTHER, SELFPAY | PROVIDERS: PCP Family Medicine; Visit Provider Obstetrics & Gynecology | DX: R32 Unspecified urinary incontinence (principal) | CPT/HCPCS: 36415; 80053; 81000; 83520; 85025; 85651; 86140; 87086 ==

== ENCOUNTER → 2023-03-04 15:13 | Outpatient (BNVA) | payer OTHER, SELFPAY | PROVIDERS: PCP Family Medicine; Visit Provider Internal Medicine | DX: M54.50 Low back pain, unspecified (principal); M25.50 Pain in unspecified joint; R76.8 Other specified abnormal immunological findings in serum | CPT/HCPCS: 80053; 82550; 83735; 84100; 85025 ==

== ENCOUNTER 2023-08-15 09:52 | Emergency (ER) | payer MEDICAID, SELFPAY ==
--- NOTE | 2023-08-15 09:57 | ECG_ITS ---
[facility] Test Date: 2023-08-15 Pat Name: Rolanda Austin Department: Room: Gender: Female [employer] Drawer: : 1975 Requested By: Hillary Maldonado Order Number: [id number] Ruperto MD: Tej Hoyt M.D. Measurements Intervals Purcell Rate: 90 P: 18 NM: 153 QRS: 48 QRSD: 110 T: 51 QT: 369 QTc: 453 Interpretive Statements SINUS RHYTHM LOW QRS VOLTAGE IN PRECORDIAL LEADS [QRS DEFLECTION < 1.0 mV IN CHEST LEADS] Compared to ECG 05/23/2019 13:17:48 Low QRS voltage now present Electronically Signed On 08-15-2023 13:06:16 CDT by Tej Hoyt M.D. [id number] f
[2023-08-15 10:01] VITALS: BP 135/84; PULSE 81; RESP 16; TEMP 36.6; O2SAT 97
[2023-08-15 10:04] VITALS: BP 135/84; PULSE 87; O2SAT 92
--- NOTE | 2023-08-15 10:15 | W.ED.CHESTPA ---
HPI - Chest Pain General: Chief Complaint: Chest Pain Stated Complaint: chest tighness Time Seen by Provider: 08/15/23 09:53 Source: patient and family Mode of arrival: ambulatory Limitations: no limitations History of Present Illness: Patient is a nice 47-year-old female here with a history of intermittent chest heaviness over the past 2 months or so. Patient states when symptoms started she would maybe get an episode of heaviness every couple of days that would last 15 minutes or so. She states over the past week or so she has been getting daily episodes. Symptoms always seem to start at rest. She has had symptoms in the middle of the night that have awoken her from sleep. There does not seem to be any exertional component. She states symptoms always seem to alleviate on their own without intervention. She denies palpitations. She never has any shortness of breath or difficulty breathing. She does sleep with a CPAP. She questions whether her symptoms could be secondary to a thickened esophagus that was seen on previous imaging. She does take Protonix daily. She has no known cardiac disease. Denies weight gain, leg swelling, or calf pain. MD complaint: chest heaviness Onset (ago): month(s) Timing of current episode: episodic Prior episodes: Yes Onset: during rest Pain location: substernal Pain radiation: right arm and left arm Severity: moderate Quality: heaviness Relieving factors: nothing Exacerbating factors: nothing Associated symptoms: Deny abdominal pain, dyspnea, fever(s), nausea, palpitations, syncope or vomiting Risk Factors: Coronary artery disease risk factors: hypertension Thoracic aortic dissection risk factors: none Related Data: On Oral Contraceptives: No Review of Systems Const: Denies: fever(s), chills, body aches, fatigue or malaise Eyes: Denies: change in vision or blurry vision Card: Reports: chest pain; Denies: palpitations, irregular heart rhythm, edema, swelling of feet/ankles, lightheadedness, syncope, pre-syncope, dyspnea on exertion, orthopnea, leg pain with exertion or acrocyanosis Resp: Denies: dyspnea, productive cough, non-productive cough, wheezing, stridor, pain on inspiration, change in phlegm color, hemoptysis or chest congestion GI: Denies: abdominal pain, nausea, vomiting, heartburn or diarrhea : Denies: dysuria Musc: Reports: joint pain (chronically with her RA/fibromyalgia ); Denies: neck pain, back pain, extremity pain or extremity swelling Skin/Breast: Denies: rash Neuro: Denies: headache(s), numbness in extremities, weakness in extremities, sensory changes or dizziness PFSH ED PFSH: Medical History Spondylolisthesis of lumbar region Low back pain of over 3 months duration Cervical disc disease Low back pain Surgical History History of endometrial ablation 2015 History of delivery History of cholecystectomy History of tubal ligation Family History Grandmother Cancer Grandmother Diabetes Family/Other Hypertension Thyroid disease Grandmother Thyroid disease Denies family history of Colon cancer Ovarian cancer Heart disease Hyperlipidemia Breast cancer Uterine cancer Stroke Social History Smoking and tobacco/nicotine status: never used tobacco/nicotine Alcohol intake: current Alcohol intake frequency: few times a month Substance/Drug Use: never Household members: none Marital status: Current occupation: [employer] [place] Physical Exam Const: COMMON NORMALS: no acute distress, patient oriented x3, no limitations, alert and well nourished GENERAL APPEARANCE: cooperative NUTRITIONAL APPEARANCE: obese morbidly obese (BMI is 40.4) ORIENTATION/CONSCIOUSNESS: Yes awake, Yes oriented to person, Yes oriented to place and Yes oriented to time HENMT: COMMON NORMALS: normocephalic and atraumatic HEAD & SCALP: normocephalic and atraumatic Neck/C-Spine: COMMON NORMALS: full ROM, no lymphadenopathy, supple, no meningeal signs and no JVD Chest: COMMONS NORMALS: normal inspection of the chest and normal palpation of entire chest wall Resp: COMMON NORMALS: normal respiratory effort and clear to auscultation bilaterally AUSCULTATION: clear to auscultation bilaterally Cardio: COMMON NORMALS: no JVD, regular rate and regular rhythm RATE: regular rate RHYTHM: regular rhythm GI: COMMON NORMALS: Normal to inspection, nondistended, normoactive bowel sounds present, Soft to palpation, non-tender, No hepatosplenomegaly present and no masses PALPATION: Yes Soft to palpation and Yes No hepatosplenomegaly present : COMMON NORMALS: Yes no CVA tenderness BLADDER/KIDNEY EXAM: Yes no CVA tenderness Back/Pelvis: COMMON NORMALS: no CVA tenderness and thoracic and lumbar spine normal to inspection Extremity: COMMON NORMALS: normal to inspection, capillary refill normal, no clubbing, cyanosis or edema, no calf tenderness and no pedal edema GENERAL: Yes normal exam except as noted Neuro: CHASE COMA SCALE: document GCS findings [place] coma scale eye opening: Spontaneous [place] coma scale verbal response: Orientated Chase coma scale motor response: Obey commands Chase coma scale total score: 15 COMMON NORMALS: patient oriented x3, moves all extremities, no focal motor deficits and no sensory deficits noted SENSORIUM/ORIENTATION: Yes alert, Yes oriented to person, Yes oriented to place and Yes oriented to time MENINGEAL SIGNS: Yes no meningeal signs Skin: COMMON NORMALS: no rashes or lesions noted GENERAL SKIN EXAM: no rashes or lesions noted Course Vital Signs: Vital signs: Vital Signs Temperature 98 F 08/15/23 10:01 Pulse Rate 76 08/15/23 10:34 Respiratory Rate 16 08/15/23 10:01 Blood Pressure 123/77 08/15/23 10:34 Pulse Oximetry 93 08/15/23 10:34 Oxygen Delivery Me thod Room Air 08/15/23 10:34 MDM - Chest Pain Medical Decision Making Patient is not having any active pain here. She arrives in no acute distress with stable vital signs. Her workup today including troponin and EKG as well as CXR unremarkable. She has had intermittent episodes for at least 2 months. At this time she is stable for discharge from the emergency department. She does have an appointment with PCP next week that I would like her to discuss the possible need for an outpatient cardiac stress test. Other etiologies include acid reflux/GERD. Discussed possibly trialing some Maalox/Zantac when she gets symptoms to see if this helps. We did discuss any worsening chest pain, more frequent episodes, shortness of breath, passing out episodes, etc warrant a trip back to the emergency department. Her and her daughter both verbalized understanding. Lab Data 08/15/23 10:16 08/15/23 10:16 Laboratory Results WBC 5.41 10^3/uL (3.29-11.43) 08/15/23 10:16 RBC 4.12 10^6/uL (3.85-5.65) 08/15/23 10:16 Hgb 12.00 g/dL (11.27-16.99) 08/15/23 10:16 Hct 35.8 % (36-47) L 08/15/23 10:16 MCV 86.9 fl (85-98) 08/15/23 10:16 MCH 29.1 pg (27-33) 08/15/23 10:16 MCHC 33.5 g/dL (30-55) 08/15/23 10:16 RDW 12.6 % (12.1-15.1) 08/15/23 10:16 Plt Count 238 10^3/cmm (157-399) 08/15/23 10:16 MPV 11.0 fL (7.4-10.4) H 08/15/23 10:16 Neut % (Auto) 49.5 % 08/15/23 10:16 Lymph % (Auto) 32.9 % 08/15/23 10:16 [place] % (Auto) 7.4 % 08/15/23 10:16 Eos % (Auto) 9.1 % 08/15/23 10:16 Baso % (Auto) 0.9 % 08/15/23 10:16 Neut # (Auto) 2.68 10^3/uL (1.8-7.7) 08/15/23 10:16 Lymph # (Auto) 1.8 10^3/uL (0.8-4.8) 08/15/23 10:16 [place] # (Auto) 0.4 10^3/uL (0.2-0.9) 08/15/23 10:16 Eos # (Auto) 0.5 10^3/uL (0.0-0.8) 08/15/23 10:16 Baso # (Auto) 0.1 10^3/uL (0.0-0.1) 08/15/23 10:16 Nucleated RBC % (auto) 0 % 08/15/23 10:16 Nucleated RBCs # 0.0 /100WBC 08/15/23 10:16 Sodium 136 mmol/L (136-145) 08/15/23 10:16 Potassium 3.9 mmol/L (3.5-5.1) 08/15/23 10:16 Chloride 101 mmol/L (98-107) 08/15/23 10:16 Carbon Dioxide 25 mmol/L (22-29) 08/15/23 10:16 Anion Gap 13.9 (5-19) 08/15/23 10:16 BUN 16 mg/dL (6-20) 08/15/23 10:16 Creatinine 0.9 mg/dL (0.5-0.9) 08/15/23 10:16 GFR Calculation 66.8 mL/min (90-130) L 08/15/23 10:16 Glucose 105 mg/dL (65-115) 08/15/23 10:16 Calculated Osmolality 284 mOsm/kg (285-295) L 08/15/23 10:16 Calcium 9.2 mg/dL (8.5-10.5) 08/15/23 10:16 Total Bilirubin 0.2 mg/dL (0.15-1.2) 08/15/23 10:16 AST 15 U/L (0-32) 08/15/23 10:16 ALT 14 U/L (0-33) 08/15/23 10:16 Alkaline Phosphatase 87 U/L (35-105) 08/15/23 10:16 Troponin T Baseline 7 ng/L (0-10) 08/15/23 10:16 Total Protein 6.9 g/dL (6.6-8.7) 08/15/23 10:16 Albumin 4.1 g/dL (3.5-5.2) 08/15/23 10:16 Globulin 2.8 g/dL (1.3-4.6) 08/15/23 10:16 XR interpretation done by ED provider, pending radiology final review Discharge Plan Discharge Patient Disposition: Home Clinical Impression: Chest pain Qualifiers: Chest pain type: unspecified Qualified Code(s): R07.9 - Chest pain, unspecified Condition: Stable Prescriptions: No Action levothyroxine 150 mcg capsule 150 mcg PO DAILY alprazolam 1 mg tablet 1 mg PO BID garlic 2 cap PO DAILY levocetirizine [Xyzal] 5 mg tablet 5 mg PO DAILY diclofenac sodium [Voltaren Arthritis Pain] 1 % gel 4 g topical QID Qty: 100 0RF Rx Instructions: apply to single knee, ankle, foot; for foot includes sole/toes/top of foot meloxicam 15 mg tablet 15 mg PO DAILY Qty: 90 0RF leflunomide 20 mg tablet 20 mg PO DAILY Qty: 30 3RF hydroxychloroquine 200 mg tablet 200 mg PO BID Qty: 180 1RF sulfamethoxazole-trimethoprim [Bactrim DS] 800-160 mg tablet 1 tab PO BID 7 Days Qty: 14 0RF clindamycin HCl 150 mg capsule 450 mg PO TID 5 Days Qty: 45 0RF erythromycin 5 mg/gram (0.5 %) ointment 1 applic ophthalmic (eye) QID PRN (Reason: discomfort) 5 Days Qty: 3.5 0RF solifenacin [Vesicare] 10 mg tablet 10 mg PO DAILY Qty: 30 1RF pantoprazole 20 mg tablet,delayed release (DR/EC) 20 mg PO DAILY gabapentin 600 mg Tablet 600 mg PO BID potassium chloride 10 mEq Tablet Extended Release 10 meq PO DAILY lisinopril-hydrochlorothiazide 20-25 mg Tablet 1 tab PO DAILY hydrocodone-acetaminophen 5-325 mg tablet 1 tab PO Q6H PRN (Reason: pain) Qty: 14 0RF prednisone 5 mg tablet 5 mg PO PRN cyclobenzaprine 5 mg tablet 5 mg PO BID PRN (Reason: Spasms) Discharge Orders: Discharge ED (Routine); Ordered 08/15/23 Ordered By: Hillary Maldonado Referrals: Caio Melgar [Primary Care Provider] - Patient Instructions: Chest Pain (DC) Activity Restrictions/Additional Instructions: As we discussed I would like you to speak to your primary care provider next at your currently scheduled appointment in regards to your intermittent chest pains. They can decide whether an outpatient cardiac stress test is appropriate. As we discussed I would like you to return to the emergency department for any worsening/severe episodes of chest pain, shortness of breath, difficulty breathing, generally feeling worse or unwell, or any other concerns you may have. I hope you begin to feel better soon. Coding Level of Care Code ED [employer] for [address]
--- NOTE | 2023-08-15 10:16 | XRR_ITS ---
PROCEDURE INFORMATION: Exam: XR Chest Exam date and time: 08/15/2023 10:20 AM Age: 47 years old Clinical indication: Pain; Angina pectoris; Additional info: Chest pain TECHNIQUE: Imaging protocol: Radiologic exam of the chest. Views: 1 view. COMPARISON: CR XR cervical spine fl/ex [id number] 09/06/2019 9:21 AM FINDINGS: Lungs: No focal lung consolidation. Pleural spaces: No pleural effusion. No pneumothorax. Heart/Mediastinum: Unremarkable. No cardiomegaly. Bones/joints: No acute bony abnormality. XR/XR chest 1V portable [id number] IMPRESSION: No focal lung consolidation.
[2023-08-15 10:20] LABS: Basophils # 0.1 10^3/uL (0.0-0.1); Basophils % 0.9 %; Eosinophils # 0.5 10^3/uL (0.0-0.8); Eosinophils % 9.1 %; Hematocrit 35.8 % (36-47); Lymphocytes # 1.8 10^3/uL (0.8-4.8); Lymphocytes % 32.9 %; Mean Corpuscular HGB Conc 33.5 g/dL (30-55); Mean Corpuscular Hemoglobin 29.1 pg (27-33); Mean Corpuscular Volume 86.9 fl (85-98); Monocytes # 0.4 10^3/uL (0.2-0.9); Monocytes % 7.4 %; Neutrophils # 2.68 10^3/uL (1.8-7.7); Neutrophils % 49.5 %; Nucleated Red Blood Cells % 0 %; Platelet Count 238 10^3/cmm (157-399); Red Blood Count 4.12 10^6/uL (3.85-5.65); Red Cell Distribution Width 12.6 % (12.1-15.1); White Blood Count 5.41 10^3/uL (3.29-11.43)
[2023-08-15 10:34] VITALS: BP 123/77; PULSE 76; O2SAT 93
[2023-08-15 10:42] LABS: Troponin(5th) Baseline 7 ng/L (0-10)
[2023-08-15 10:45] LABS: Alanine Aminotransferase 14 U/L (0-33); Albumin Level 4.1 g/dL (3.5-5.2); Alkaline Phosphatase 87 U/L (35-105); Anion Gap 13.9 (5-19); Aspartate Amino Transferase 15 U/L (0-32); Blood Urea Nitrogen 16 mg/dL (6-20); Calcium 9.2 mg/dL (8.5-10.5); Carbon Dioxide 25 mmol/L (22-29); Chloride 101 mmol/L (98-107); Creatinine Clr Calc Pharmacy 87.8635; Globulin 2.8 g/dL (1.3-4.6); Glomerular Filtration Rate 66.8 mL/min (90-130); Glucose 105 mg/dL (65-115); Osmolality Calculated 284 mOsm/kg (285-295); Potassium 3.9 mmol/L (3.5-5.1); Sodium 136 mmol/L (136-145); Total Bilirubin 0.2 mg/dL (0.15-1.2); Total Protein 6.9 g/dL (6.6-8.7)
== END 2023-08-15 11:18 | disposition home or self-care (01) ==
PROVIDERS: Emergency Provider Physician Assistant; PCP Family Medicine
DX: R07.9 Chest pain, unspecified (principal)
CPT/HCPCS: 71045; 80053; 84484; 85025; 93005; 99285

== ENCOUNTER 2023-09-16 07:53 | Outpatient (CLI) | payer MEDICAID, SELFPAY ==
--- NOTE | 2023-09-16 07:55 | FL_ITS ---
WS: [id number] Exam: FL barium swallow [id number] Date/Time of Exam: 09/16/2023 8:20 AM Reason For Exam: ESOPHAGEAL DYSPHAGIA/ESOPHAGEAL THICKENING Fluoroscopy time: 1min [id number] minutes # of spot films: Oropharyngeal phase of swallowing was normal. There was moderate spasm of the mid and distal esophagu s. No sign of esophageal stricture or mass. No reflux was identified. No obvious hiatal hernia. The e sophagus was not displaced. FL/FL barium swallow [id number] IMPRESSION: 1. Moderate amount of spasm in the mid and lower esophagus. No sign of esophage al stricture or mass. 2. No reflux was identified.
== END 2023-09-16 07:54 | disposition home or self-care (01) ==
PROVIDERS: PCP Family Medicine; Visit Provider Family Medicine
DX: R13.19 Other dysphagia (principal); K22.4 Dyskinesia of esophagus
CPT/HCPCS: 74220

== ENCOUNTER 2024-09-08 23:38 | Emergency (ER) | payer MEDICAID, SELFPAY ==
[2024-09-08 23:42] VITALS: BP 109/70; PULSE 76; RESP 18; TEMP 36.8; O2SAT 96; BMI 40.4
--- NOTE | 2024-09-09 00:56 | W.ED.BACK ---
HPI - Back Pain/Injury General: Chief Complaint: Back Pain/Injury Stated Complaint: Lower back pain down to feet Time Seen by Provider: 09/09/24 00:45 History of Present Illness: 48-year-old female with a history of chronic low back pain that flared up this evening. She says she took hydrocodone and it did not help at all. Pain is severe. No saddle numbness, no urinary retention or incontinence, no focal motor deficit, no sensory deficit. no recent fever. no cough. no shortness of breath. no chest pain. no abdominal pain. no nausea or vomiting. no dysuria. no altered mental status. no edema. Related Data Home Medications ?Medication ?Instructions ?Recorded ?Confirmed gabapentin 600 mg tablet 600 mg PO BID 05/23/19 04/19/24 lisinopril 20 1 tab PO DAILY 05/23/19 04/19/24 mg-hydrochlorothiazide 25 mg tablet pantoprazole 20 mg tablet,delayed 20 mg PO DAILY 05/23/19 04/19/24 release potassium chloride 10 mEq 10 meq PO DAILY 05/23/19 04/19/24 tablet,extended release alprazolam 1 mg tablet 1 mg PO BID 07/11/21 04/19/24 garlic 2 cap PO DAILY 07/11/21 04/19/24 levocetirizine 5 mg tablet (Xyzal) 5 mg PO DAILY 07/11/21 04/19/24 levothyroxine 150 mcg capsule 150 mcg PO DAILY 07/11/21 04/19/24 cyclobenzaprine 5 mg tablet 5 mg PO BID PRN Spasms 12/26/22 04/19/24 Previous Rx's ?Medication ?Instructions ?Recorded diclofenac sodium 1 % topical gel 4 g topical QID #100 grams 10/03/21 (Voltaren Arthritis Pain) meloxicam 15 mg tablet 15 mg PO DAILY #90 tabs 01/01/23 hydroxychloroquine 200 mg tablet 200 mg PO BID #180 tabs 03/04/23 leflunomide 20 mg tablet 20 mg PO DAILY #30 tabs 03/04/23 erythromycin 5 mg/gram (0.5 %) eye 1 applic ophthalmic (eye) QID PRN 07/24/23 ointment (3.5 gram tube) discomfort 5 days #3.5 grams solifenacin 10 mg tablet See Rx Instructions .Route 10/30/23 .COMPLEX #30 tabs cephalexin 500 mg capsule 500 mg PO QID #40 caps 04/19/24 cyclobenzaprine 10 mg tablet 10 mg PO Q8H PRN muscle spasm #20 09/09/24 tabs prednisone 20 mg tablet 60 mg (3 x 20 mg) PO DAILY #20 tabs 09/09/24 Allergies Allergy/AdvReac Type Severity Reaction Status Date / Time No Known Drug Allergies Allergy Unknown Verified 09/08/24 23:47 Review of Systems Narrative: Constitutional symptoms: Negative except as documented in HPI. Skin symptoms: Negative except as documented in HPI. Eye symptoms: Negative except as documented in HPI. ENMT symptoms: Negative except as documented in HPI. Respiratory symptoms: Negative except as documented in HPI. Cardiovascular symptoms: Negative except as documented in HPI. Gastrointestinal symptoms: Negative except as documented in HPI. Genitourinary symptoms: Negative except as documented in HPI. Musculoskeletal symptoms: Negative except as documented in HPI. Neurologic symptoms: Negative except as documented in HPI. Psychiatric symptoms: Negative except as documented in HPI. Endocrine symptoms: Negative except as documented in HPI. PFSH ED PFSH: Medical History Psychiatric care Spondylolisthesis of lumbar region Low back pain of over 3 months duration Cervical disc disease Low back pain Surgical History History of endometrial ablation 2014 History of delivery History of cholecystectomy History of tubal ligation Family History Grandmother Cancer Grandmother Diabetes Family/Other Hypertension Thyroid disease Grandmother Thyroid disease Denies family history of Colon cancer Ovarian cancer Heart disease Hyperlipidemia Breast cancer Uterine cancer Stroke Social History Smoking and tobacco/nicotine status: never used tobacco/nicotine Alcohol intake: current Alcohol intake frequency: few times a month Substance/Drug Use: never Household members: none Marital status: Current occupation: [employer] in [place] Physical Exam Narrative: EXAM NARRATIVE: General: Alert, no acute distress. Skin: warm and dry Head: Normocephalic Neck: Trachea midline Eye: Extraocular movements are intact. Ears, nose, mouth and throat: Oral mucosa moist Respiratory: Respirations are non-labored Musculoskeletal: Normal ROM Gastrointestinal: Abdomen does not appear distended Neurological: Alert and oriented, No focal neurological deficit observed. Psychiatric: Cooperative, appropriate mood & affect. Course Vital Signs: Vital signs: Vital Signs Temperature 98.3 F 09/08/24 23:42 Pulse Rate 76 09/08/24 23:42 Respiratory Rate 18 09/08/24 23:42 Blood Pressure 109/70 09/08/24 23:42 Pulse Oximetry 96 09/08/24 23:42 MDM - Back Pain/Injury Medical Decision Making Assessment and plan: Acute on chronic low back pain ?IV Dilaudid, Toradol, Solu-Medrol and Norflex. - Discharged home - Discussed plan with patient. Answered any questions. - Evaluation and treatment of this problem were appropriate in the emergency setting. No radiology studies performed this visit Discharge Plan Discharge Patient Disposition: Home Clinical Impression: Acute exacerbation of chronic low back pain Condition: Stable Prescriptions: New cyclobenzaprine 10 mg tablet 10 mg PO Q8H PRN (Reason: muscle spasm) Qty: 20 0RF prednisone 20 mg tablet 60 mg PO DAILY Qty: 20 0RF Rx Instructions: 3 tabs (60 mg) x 3 days. 2 tabs (40 mg) x 3 days. 1 tab (20 mg) x 3 days. 1/2 tab (10 mg) x 4 days No Action cephalexin 500 mg capsule 500 mg PO QID Qty: 40 0RF levothyroxine 150 mcg capsule 150 mcg PO DAILY alprazolam 1 mg tablet 1 mg PO BID garlic 2 cap PO DAILY levocetirizine [Xyzal] 5 mg tablet 5 mg PO DAILY diclofenac sodium [Voltaren Arthritis Pain] 1 % gel 4 g topical QID Qty: 100 0RF Rx Instructions: apply to single knee, ankle, foot; for foot includes sole/toes/top of foot meloxicam 15 mg tablet 15 mg PO DAILY Qty: 90 0RF leflunomide 20 mg tablet 20 mg PO DAILY Qty: 30 3RF hydroxychloroquine 200 mg tablet 200 mg PO BID Qty: 180 1RF erythromycin 5 mg/gram (0.5 %) ointment 1 applic ophthalmic (eye) QID PRN (Reason: discomfort) 5 Days Qty: 3.5 0RF solifenacin 10 mg tablet See Rx Instructions .ROUTE .COMPLEX Qty: 30 0RF Dose Instruction: Take 1 tablet by mouth once daily Rx Instructions: Take 1 tablet by mouth once daily pantoprazole 20 mg tablet,delayed release (DR/EC) 20 mg PO DAILY gabapentin 600 mg Tablet 600 mg PO BID potassium chloride 10 mEq Tablet Extended Release 10 meq PO DAILY lisinopril-hydrochlorothiazide 20-25 mg Tablet 1 tab PO DAILY cyclobenzaprine 5 mg tablet 5 mg PO BID PRN (Reason: Spasms) Discharge Orders: Discharge ED (Routine); Ordered 09/09/24 Ordered By: Erika Antunez Referrals: Caio Melgar [Primary Care Provider, Family Practice] Discharge Diet: Usual diet Discharge Activity: Increase activity as tolerated Patient Instructions: Opioid Safety, Pain Management Activity Restrictions/Additional Instructions: Thank you for choosing [facility] for your healthcare needs today. You have been screened and evaluated and felt safe for discharge. Health conditions do change or evolve sometimes and as such it is important that you follow up with your Primary Doctor to be re checked, 3-5 days is a general good time frame for follow up. You are always welcome to return to the ED for re assessment if your symptoms are worsening or you have new concerns Print Language: Urdu Coding Level of Care Code ED [employer] for [address]
[2024-09-09] MEDS: ketorolac 30 mg/mL INJ IVP (01:06)
[2024-09-09] MEDS: orphenadrine 30 mg/mL Inj 2 mL 60 MG IVP (01:06)
[2024-09-09] MEDS: methylPREDNISolone sod succ 125 mg/2 mL INJ IVP (01:06)
[2024-09-09] MEDS: HYDROmorphone 0.5 MG/0.5 ML INJ 1 MG IVP (01:06)
[2024-09-09 01:09] VITALS: BP 107/67; PULSE 72; O2SAT 94
[2024-09-09 02:08] VITALS: BP 137/70; PULSE 72; O2SAT 95
== END 2024-09-09 02:11 | disposition home or self-care (01) ==
PROVIDERS: Emergency Provider Emergency Medicine; PCP Family Medicine
DX: M54.59 Other low back pain (principal)
CPT/HCPCS: 96374; 96375; 99284; J1171; J1885; J2360; J2919